=== PATIENT | female | born 1955 | race Caucasian/White ===

== ENCOUNTER 2019-11-11 11:19 | Emergency (ER) | payer BC ==
[~2019-11-11] VITALS: Ht 165.1 cm; Wt 77.7 kg
[2019-11-11 11:23] VITALS: BP 119/55
[2019-11-11] MEDS ORDERED: acetaminophen 325mg tablet PO ONE (12:15)
== END 2019-11-11 12:48 | disposition home or self-care (01) ==
LOC: ER 11:20
DX: M25.562 Pain in left knee (principal); R20.0 Anesthesia of skin; X50.1XXA Overexertion from prolonged static or awkward postures, initial encounter; Y93.89 Activity, other specified; Y92.89 Other specified places as the place of occurrence of the external cause; Y99.8 Other external cause status
CPT/HCPCS: 29505; 73564; 99283

== ENCOUNTER 2020-03-30 11:52 | Day surgery (SDC) | payer BC ==
[2020-03-30] VITALS (10 sets, daily range): BP systolic 128–153; BP diastolic 58–91
[~2020-03-30] VITALS: Ht 165.1 cm; Wt 78.4 kg
[2020-03-30] MEDS ORDERED: diphenhydrAMINE 25mg capsule PO PRN (12:20)
[2020-03-30] MEDS ORDERED: normal saline 1,000 ML IV SCH (12:20)
[2020-03-30 12:55] LABS: BASOPHILS % (AUTO) 0.4 % (0-1); EOSINOPHILS # (AUTO) 0.2 X10'3 (0-0.9); HEMATOCRIT 35.1 % (35.0-45.0); HEMOGLOBIN 11.6 g/dl (12.0-16.0); LYMPHOCYTES # (AUTO) 1.7 X10'3 (1.1-4.8); LYMPHOCYTES % (AUTO) 33.3 % (21-51); MEAN CORPUSCULAR HEMOGLOBIN 26.5 PG (27.0-31.0); MEAN CORPUSCULAR VOLUME 80.4 FL (78-98); MEAN PLATELET VOLUME 8.1 FL (7.4-10.4); MONOCYTES # (AUTO) 0.4 X10'3 (0-0.9); NEUTROPHILS # (AUTO) 2.9 X10'3 (1.8-7.7); NEUTROPHILS % (AUTO) 55.3 % (42-75); PLATELET COUNT 239 X10'3 (140-440); RED BLOOD COUNT 4.36 X10'6 (4.20-5.60); RED CELL DISTRIBUTION WIDTH 16.8 % (11.5-14.5); WHITE BLOOD COUNT 5.2 X10'3 (4.5-11.0)
[2020-03-30] MEDS ORDERED: FERR-121 PO (13:01)
[2020-03-30] MEDS ORDERED: ALBU2.5V13 NEB (13:01)
[2020-03-30] MEDS ORDERED: LOPE1TAB46 PO (13:01)
[2020-03-30] MEDS ORDERED: ATOR20TA66 PO (13:01)
[2020-03-30] MEDS ORDERED: OMEP20TA23 PO (13:01)
[2020-03-30] MEDS ORDERED: ADV50100 INH (13:01)
[2020-03-30] MEDS ORDERED: MV-M1TAB19 PO (13:01)
[2020-03-30] MEDS ORDERED: CYAN-34 PO (13:01)
[2020-03-30 13:05] LABS: ALBUMIN 3.8 G/DL (3.4-5.0); ANION GAP 3 (8-16); BLOOD UREA NITROGEN 15 MG/DL (7-18); BUN/CREATININE RATIO 21.1 (6.6-38.0); CALCIUM 8.9 MG/DL (8.5-10.1); CHLORIDE 103 MMOL/L (99-107); CREATININE 0.71 MG/DL (0.40-0.90); GLUCOSE 90 MG/DL (70-104); MAGNESIUM 1.9 MG/DL (1.5-2.4); POTASSIUM 3.8 MMOL/L (3.5-5.1); SODIUM 136 MMOL/L (135-145); TOTAL CARBON DIOXIDE 29.8 MMOL/L (24-32); eGFR 83 ML/MIN
[2020-03-30] MEDS ORDERED: fentaNYL/PF 50MCG/1 ML 2ML syringe ONE (13:19)
[2020-03-30] MEDS ORDERED: midazolam 2 mg/2 ml injection ONE ×2 (13:19→14:05)
[2020-03-30] MEDS ORDERED: iohexol 350 MG/ML 50ML vial IV ONE (13:20)
[2020-03-30] MEDS ORDERED: iohexol 350MG/ML 100ml bottle IV ONE (13:20)
[2020-03-30] MEDS ORDERED: LIDOcaine 1% (10mg/ml)w/preservative injection 20ml MDV ONE (13:20)
[2020-03-30] MEDS ORDERED: proCHLORperazine 10 MG/2 ml inj IV PRN (14:40)
[2020-03-30] MEDS ORDERED: HYDROcodone/acetaminophen 5mg/325mg tablet PO PRN (14:40)
[2020-03-30] MEDS ORDERED: acetaminophen 325mg tablet PO PRN (14:40)
[2020-03-30] MEDS ORDERED: HYDROcodone/acetaminophen 10/325mg tab PO PRN (14:40)
[2020-03-30] MEDS ORDERED: ondansetron/PF 4mg/2ml inj IV PRN (14:40)
== END 2020-03-30 18:00 | disposition home or self-care (01) ==
LOC: SSTAY O 11:52
PROVIDERS: ATTEND Internal Medicine Cardiovascular Disease
DX: R94.39 Abnormal result of other cardiovascular function study (principal); R07.89 Other chest pain; E78.5 Hyperlipidemia, unspecified; E03.9 Hypothyroidism, unspecified; J45.909 Unspecified asthma, uncomplicated; D64.9 Anemia, unspecified; Z98.51 Tubal ligation status; Z98.890 Other specified postprocedural states; Z79.899 Other long term (current) drug therapy; Z82.49 Family history of ischemic heart disease and other diseases of the circulatory system
CPT/HCPCS: 36415; 80048; 83735; 85025; 85610; 93005; 93458; 99152; C1769; C1894; J1644; J2001; J2250; J3010; J7030; Q0163; Q9967; A4620; A6258; C1760

== ENCOUNTER 2023-07-06 10:28 | Outpatient (CLI) | payer OTHER, MEDICARE ==
[~2023-07-06 10:28] MED LIST: ADV50100 INH; ALBU2.5V13 NEB; ATOR20TA66 PO; CYAN-34 PO; FERR-121 PO; LOPE1TAB46 PO; MV-M1TAB19 PO; OMEP20TA23 PO
== END 2023-07-06 23:59 | disposition home or self-care (01) ==
LOC: RAD 10:28
PROVIDERS: ATTEND Surgery
DX: K44.9 Diaphragmatic hernia without obstruction or gangrene (principal)
CPT/HCPCS: 74220

== ENCOUNTER 2023-07-14 09:23 | Outpatient (CLI) | payer OTHER, MEDICARE | END 2023-07-14 23:59 | disposition home or self-care (01) | LOC: RAD 09:23 → EDSTATUS 10:00 → RAD 23:59 | PROVIDERS: ATTEND Surgery | DX: K44.9 Diaphragmatic hernia without obstruction or gangrene (principal) | CPT/HCPCS: 78264; A9541 ==

== ENCOUNTER 2024-04-26 12:17 | Day surgery (SDC) | payer OTHER, MEDICARE ==
[~2024-04-26] VITALS: Ht 162.6 cm; Wt 72.7 kg
[2024-04-26] VITALS (18 sets, daily range): BP systolic 110–174; BP diastolic 58–98; PULSE 58–84; RESP 13–23; O2SAT 94–100
[~2024-04-26 12:17] MED LIST changes: -ADV50100 INH; +ALBU2.5V12 NEB; +ANAS1TAB10 PO; -CYAN-34 PO; -FERR-121 PO; +FLUT1DIS15 INH; +IRON150C5 PO; -LOPE1TAB46 PO; +MONT-47 PO; -OMEP20TA23 PO; +PANT20TA18 PO; +iohexol 300mg/ml 100ml inj. ONE
[2024-04-26] MEDS ORDERED: fentaNYL/PF 50MCG/1 ML 2ML syringe ONE (12:45)
[2024-04-26] MEDS ORDERED: MIDAZolam 1 MG/ML 5ML VIAL ONE (12:45)
[2024-04-26] MEDS ORDERED: diphenhydrAMINE 50 mg/ml inj ONE (12:46)
[2024-04-26] MEDS ORDERED: glucagon, human recombinant 1mg kit ONE ×2 (12:46)
[2024-04-26] MEDS ORDERED: LIDOcaine 2% Viscous 15ml cup ONE (12:46)
[2024-04-26] MEDS ORDERED: levoFLOXACIN-Levaquin 500mg/D5 100 ML IV ONE (13:47)
[2024-04-26] MEDS ORDERED: ondansetron/PF 4mg/2ml inj ONE (16:06)
== END 2024-04-26 17:00 | disposition home or self-care (01) ==
LOC: GI LAB 12:17
PROVIDERS: ATTEND Internal Medicine Gastroenterology
DX: K80.50 Calculus of bile duct without cholangitis or cholecystitis without obstruction (principal); Z90.49 Acquired absence of other specified parts of digestive tract
CPT/HCPCS: 43262; 43264; 99152; 99153; J1610; J1956; J2250; J2405; J3010; J7030; Q9967; Z7512; Z7610; A4620; C1769; J1200

== ENCOUNTER 2024-04-28 09:32 | Inpatient (IN) | payer OTHER, MEDICARE ==
[2024-04-28] VITALS (11 sets, daily range): BP systolic 147–185; BP diastolic 66–89; PULSE 70–91; RESP 12–21; TEMP 97.6–98.1; O2SAT 96–98
[~2024-04-28] VITALS: Ht 162.6 cm; Wt 69.9 kg
[~2024-04-28 09:32] MED LIST changes: -ALBU2.5V12 NEB; -IRON150C5 PO; -MV-M1TAB19 PO; -iohexol 300mg/ml 100ml inj. ONE
[2024-04-28 10:12] LABS: BILIRUBIN,URINE LARGE (Neg); COLOR,URINE AMBER (Yellow); GLUCOSE, URINE 100 mg/dl (Neg); KETONES,URINE 15 mg/dl (Neg); LEUKOCYTE ESTERASE ,URINE NEGATIVE (Neg); OCCULT BLOOD,URINE SMALL (Neg); PH,URINE 5.5 (4.8-8.0); PROTEIN,URINE 30 mg/dl (Neg)
[2024-04-28 10:17] LABS: CLARITY,URINE SLIGHTLY CLOUDY (Clear); UA COLLECTION TYPE CLN CATCH MIDSTREAM
[2024-04-28 10:21] LABS: BASOPHILS % (AUTO) 0.3 % (0-1); EOSINOPHILS # (AUTO) 0.1 X10'3 (0-0.9); EOSINOPHILS % (AUTO) 0.9 % (0-6); HEMATOCRIT 37.7 % (35.0-45.0); HEMOGLOBIN 12.9 g/dl (12.0-16.0); LYMPHOCYTES # (AUTO) 0.8 X10'3 (1.1-4.8); LYMPHOCYTES % (AUTO) 9.9 % (21-51); MEAN CORPUSCULAR HEMOGLOBIN 29.9 PG (27.0-31.0); MEAN CORPUSCULAR HGB CONC 34.3 g/dL (33.0-36.5); MEAN CORPUSCULAR VOLUME 87.2 FL (78-98); MEAN PLATELET VOLUME 8.8 FL (7.4-10.4); MONOCYTES # (AUTO) 0.4 X10'3 (0-0.9); MONOCYTES % (AUTO) 5.5 % (2-12); NEUTROPHILS # (AUTO) 6.6 X10'3 (1.8-7.7); NEUTROPHILS % (AUTO) 83.4 % (42-75); PLATELET COUNT 170 X10'3 (140-440); RED BLOOD COUNT 4.32 X10'6 (4.20-5.60); RED CELL DISTRIBUTION WIDTH 13.2 % (11.5-14.5)
[2024-04-28 10:29] LABS: BACTERIA,URINE 1+ /HPF (Neg); RBC,URINE NONE SEEN /HPF (0-2); SQUAMOUS EPITHELIAL CELL,UR MANY /LPF (FEW)
[2024-04-28 10:30] LABS: CELLULAR CAST 0-4 /LPF (NEGATIVE); MUCUS STRANDS MANY /LPF (Neg)
[2024-04-28 10:36] LABS: ALANINE AMINOTRANSFERASE 427 U/L (12-78); ALBUMIN 3.6 G/DL (3.4-5.0); ALKALINE PHOSPHATASE 610 IU/L (46-116); ANION GAP 10 (8-16); BILIRUBIN,TOTAL 15.8 MG/DL (0.1-1.0); BLOOD UREA NITROGEN 10 MG/DL (7-18); BUN/CREATININE RATIO 16.7 (10.0-20.0); CALCIUM 8.5 MG/DL (8.5-10.1); CHLORIDE 104 MMOL/L (99-107); LIPASE 34 U/L (16-77); POTASSIUM 3.3 MMOL/L (3.5-5.1); SODIUM 141 MMOL/L (135-145); TOTAL CARBON DIOXIDE 26.8 MMOL/L (24-32); eCRCL 79 ML/MIN; eGFR > 90 ML/MIN
[2024-04-28 10:38] LABS: ALBUMIN/GLOBULIN RATIO 1.2 (1.1-1.5); ASPARTATE AMINO TRANSFERASE 263 U/L (10-37); GLUCOSE 102 MG/DL (70-104); TOTAL PROTEIN 6.7 G/DL (6.4-8.2)
[2024-04-28] MEDS: normal saline 1000ML IV soln IVB ONE (10:40)
[2024-04-28 10:48] LABS: PROTHROMBIN TIME 11.2 SECONDS (9.0-12.0)
[2024-04-28] MEDS ORDERED: potassium Cl 40MEQ/1/2NS 520ml 520 ML IV PRN (12:45)
[2024-04-28] MEDS ORDERED: magnesium 2GM in 50ml NS 50 ML IV PRN (12:45)
[2024-04-28] MEDS ORDERED: mag hydrox/Alum hydrox/simeth 30ml oral suspension PO PRN (12:45)
[2024-04-28] MEDS ORDERED: potassium Cl 20 mEq SR tablet PO PRN (12:45)
[2024-04-28] MEDS ORDERED: magnesium 4gm in 100ml NS 100 ML IV PRN (12:45)
[2024-04-28] MEDS ORDERED: ipratropium/albuterol 3ml nebule NEB PRN (13:35)
[2024-04-28] MEDS ORDERED: albuterol 2.5 MG/3 ML nebule NEB PRN (13:35)
[2024-04-28] MEDS: normal saline 1000ml 1,000 ML IV SCH (13:52)
[2024-04-28] MEDS: piperacillin/tazo 3.375gm/50ml 50 ML IV ONE (13:53)
[2024-04-28] MEDS ORDERED: glucagon, human recombinant 1mg kit ONE ×3 (15:21→16:25)
[2024-04-28] MEDS ORDERED: iohexol 300mg/ml 100ml inj. ONE (15:22)
[2024-04-28] MEDS ORDERED: LIDOcaine 2% Viscous 15ml cup ONE (15:24)
[2024-04-28] MEDS ORDERED: MIDAZolam 1 MG/ML 5ML VIAL ONE (15:38)
[2024-04-28] MEDS ORDERED: fentaNYL/PF 50MCG/1 ML 2ML syringe ONE (15:38)
[2024-04-28] MEDS: ondansetron/PF 4mg/2ml inj IV PRN (17:57)
[2024-04-28] MEDS: piperacillin/tazo 3.375gm/50ml 50 ML IV SCH (20:01)
[2024-04-28] MEDS: heparin, porcine 5000 units/ml vial SQ SCH (20:02)
[2024-04-28] MEDS: docusate sod 100mg capsule PO SCH (20:02)
[2024-04-28] MEDS: potassium Cl 20 mEq SR tablet PO PRN (20:02)
[2024-04-28] MEDS: K and/or MAG REPLACEMENT MC SCH (20:03)
[2024-04-29] MEDS: piperacillin/tazo 3.375gm/50ml 50 ML IV SCH (04:08)
[2024-04-29] MEDS: acetaminophen 325mg tablet PO PRN (05:12)
[2024-04-29 05:54] LABS: BASOPHILS % (AUTO) 0.3 % (0-1); EOSINOPHILS # (AUTO) 0.1 X10'3 (0-0.9); EOSINOPHILS % (AUTO) 1.8 % (0-6); HEMATOCRIT 32.9 % (35.0-45.0); HEMOGLOBIN 11.1 g/dl (12.0-16.0); MEAN CORPUSCULAR HEMOGLOBIN 29.7 PG (27.0-31.0); MEAN CORPUSCULAR HGB CONC 33.9 g/dL (33.0-36.5); MEAN CORPUSCULAR VOLUME 87.6 FL (78-98); MEAN PLATELET VOLUME 8.6 FL (7.4-10.4); MONOCYTES # (AUTO) 0.5 X10'3 (0-0.9); MONOCYTES % (AUTO) 8.5 % (2-12); NEUTROPHILS # (AUTO) 3.7 X10'3 (1.8-7.7); NEUTROPHILS % (AUTO) 70.4 % (42-75); PLATELET COUNT 143 X10'3 (140-440); RED BLOOD COUNT 3.75 X10'6 (4.20-5.60); RED CELL DISTRIBUTION WIDTH 13.3 % (11.5-14.5); WHITE BLOOD COUNT 5.3 X10'3 (4.5-11.0)
[2024-04-29 06:03] LABS: ALANINE AMINOTRANSFERASE 261 U/L (12-78); ALBUMIN 2.8 G/DL (3.4-5.0); ALKALINE PHOSPHATASE 460 IU/L (46-116); ANION GAP 7 (8-16); ASPARTATE AMINO TRANSFERASE 109 U/L (10-37); BILIRUBIN,TOTAL 5.9 MG/DL (0.1-1.0); BLOOD UREA NITROGEN 7 MG/DL (7-18); BUN/CREATININE RATIO 11.3 (10.0-20.0); CALCIUM 7.4 MG/DL (8.5-10.1); CHLORIDE 110 MMOL/L (99-107); CREATININE 0.62 MG/DL (0.40-0.90); GLUCOSE 84 MG/DL (70-104); MAGNESIUM 1.9 MG/DL (1.5-2.4); POTASSIUM 3.5 MMOL/L (3.5-5.1); SODIUM 144 MMOL/L (135-145); TOTAL CARBON DIOXIDE 26.8 MMOL/L (24-32); eCRCL 76 ML/MIN; eGFR > 90 ML/MIN
[2024-04-29 06:06] LABS: TOTAL PROTEIN 5.7 G/DL (6.4-8.2)
[2024-04-29 06:30] VITALS: BP 144/48; PULSE 81; RESP 15; TEMP 98.6; O2SAT 98
[2024-04-29 07:16] VITALS: PULSE 67; RESP 16; O2SAT 97
[2024-04-29 09:15] VITALS: RESP 16
[2024-04-29 10:00] VITALS: BP 138/62; PULSE 68; RESP 18; TEMP 97.6; O2SAT 98
== END 2024-04-29 13:04 | disposition home or self-care (01) | DRG 445 ==
LOC: ER 09:32 → ED HOLD 12:51 → EDBEDREQ 13:56 → SUR 3N 17:50
PROVIDERS: ADMIT Family Medicine; ATTEND Family Medicine
PROC: 0F798DZ Dilation of Common Bile Duct with Intraluminal Device, Via Natural or Artificial Opening Endoscopic (ICD-10-PCS; principal; 2024-04-28)
PROC: BF101ZZ Fluoroscopy of Bile Ducts using Low Osmolar Contrast (ICD-10-PCS; 2024-04-28)
DX: K80.50 Calculus of bile duct without cholangitis or cholecystitis without obstruction (principal); R17 Unspecified jaundice; J45.909 Unspecified asthma, uncomplicated; E87.6 Hypokalemia; R74.01 Elevation of levels of liver transaminase levels; E78.5 Hyperlipidemia, unspecified; Z92.3 Personal history of irradiation; Z85.3 Personal history of malignant neoplasm of breast; Z83.3 Family history of diabetes mellitus; Z82.49 Family history of ischemic heart disease and other diseases of the circulatory system; Z79.51 Long term (current) use of inhaled steroids; Z79.899 Other long term (current) drug therapy; Z90.49 Acquired absence of other specified parts of digestive tract; Z87.891 Personal history of nicotine dependence
CPT/HCPCS: 36415; 43274; 80053; 81001; 83690; 83735; 85025; 85610; 94760; 99152; 99285; A4620; C2625; G0378; J1610; J1644; J2250; J2405; J2543; J3010; J7030; Q9967